=== PATIENT | male | born 1975 ===

== ENCOUNTER 2020-05-26 22:36 | Inpatient (IN) | payer BC ==
[2020-05-26 23:09] VITALS: BMI 30.6
[2020-05-27] MEDS ORDERED: Guaifenesin DM 100-10/5 ML UDCUP PO PRN (00:44)
[2020-05-27] MEDS ORDERED: Acetaminophen 325 MG TAB PO PRN (00:44)
[2020-05-27] MEDS ORDERED: Calcium Carbonate 500 MG ChewTAB PO PRN (00:44)
[2020-05-27] MEDS ORDERED: Acetaminophen 650 MG Suppository PR PRN (00:44)
[2020-05-27] MEDS ORDERED: HYDROcodone/Acetaminophen 5/325 mg Tablet PO PRN ×2 (00:44)
[2020-05-27] MEDS ORDERED: Azithromycin 500 MG in Sodium Chloride 0.9% 250 ML 250 ML IVPB SCH ×2 (00:45→21:00)
--- NOTE | 2020-05-27 00:50 | PDOC.HHP ---
Hospitalist HPI - History of Present Illness dyspnea History of Present Illness: Case of an 44y/o male with pmhx of htn and dmt2 who comes to hospital transfer from another ED due to dyspnea. patient refers he was on his usual state of health until 2 weeks ago when he started with symptoms of losing sense of smell and taste accompanied by weakness, congestion and fever. his girlfriend had recently tested positive for the virus. patient states he went to get tested on the Friday of that week and results came back positive. today patient went to the ED because he was feeling better, and wanted to get retested to see if he could return to work. on the distance between between walking from his car to [facility] patient became dyspnic and his o2 sats were in the 70s. patient was retested and came back negative but a chest ct showed signnificant infiltrates with covid patern for which patient was transfer to this institution for further evaluation and management. Hospitalist ROS - Review of Systems All other systems reviewed; all pertinent +/- noted in HPI/Subj Hospitalist History - Past Surgical History Past Surgical History: reports: no pertinent history - Family History Family History: reports: diabetes mellitus - Social History Smoking Status: Never smoker Alcohol: reports: None Drugs: reports: none Living Situation: With Family - Exam General Appearance: NAD, awake alert Eye: PERRL, anicteric sclera ENT: normocephalic atraumatic, no oropharyngeal lesions Neck: supple, symmetric, no JVD Heart: RRR, no murmur, no gallops Respiratory: no wheezes, no rales, normal chest expansion, rhonchi Gastrointestinal: soft, non-tender, non-distended, normal bowel sounds Extremities: no cyanosis, no clubbing, no edema Neurological: cranial nerve grossly intact, normal sensation to touch, no weakness Musculoskeletal: normal tone, normal strength, no muscle wasting Psychiatric: normal affect, normal behavior, A&O x 3 Hospitalist H&P A/P - Problem (1) Acute respiratory failure with hypoxia Code(s): J96.01 - ACUTE RESPIRATORY FAILURE WITH HYPOXIA Status: Acute (2) Pneumonia due to COVID-19 virus Code(s): U07.1 - COVID-19; J12.89 - OTHER VIRAL PNEUMONIA Status: Acute (3) Uncontrolled diabetes mellitus Code(s): E11.65 - TYPE 2 DIABETES MELLITUS WITH HYPERGLYCEMIA Status: Acute (4) HTN (hypertension) Code(s): I10 - ESSENTIAL (PRIMARY) HYPERTENSION Status: Acute - Plan Plan: 44y/o male with the stated pmhx who present with covid 19 covid 19 pneumonia - tested positive a week ago - cta consistent with covid 19 - will start prophylactic rocephin + azithromycin - dexamethazone 6mg iv x 5 days - f/u inflammation markers, dimer elevated - id consulted - f/u blood cultures respiratray failure acute with hypoxia - o2 supplementation atleast 94% min - likely secondary to above DM - starting long dose insuling - acc + ss htn - contine home meds when available, patient took today - will add labetalol iv prn
[2020-05-27] MEDS ORDERED: cefTRIAXone\\ROCEPHIN 1 GM in Sodium Chloride 0.9% 100 ML IVPB SCH (01:00)
[2020-05-27] MEDS: Sodium Chloride 0.9% 1,000 ML IV SCH ×2 (01:35→21:31)
[2020-05-27] MEDS ORDERED: Dextrose 5% in Water 1,000 ML IV PRN (01:47)
[2020-05-27] MEDS ORDERED: Dextrose 50% Abboject 50 ML SYRINGE SLOW IVP PRN (01:47)
[2020-05-27] MEDS ORDERED: Labetalol HCl 100 MG/20 ML VIAL SLOW IVP PRN (01:50)
[2020-05-27] MEDS ORDERED: Insulin Glargine 10 UNITS in Pre-Filled Syringe 1 EACH SC SCH (02:30)
[2020-05-27] MEDS: HumaLOG 300 UNITS/3 ML VIAL SC PRN ×4 (02:37→21:34)
[2020-05-27 06:03] LABS: Band 1 % (5-11); Hemoglobin 14.7 g/dL (14.0-18.0); Lymphocytes 7 % (21-51); MDiff Complete? YES; Mean Corpuscular HGB CONC 34.8 g/dL (32.0-36.0); Mean Corpuscular Hemoglobin 30.5 pg (27.0-31.0); Mean Corpuscular Volume 87.4 fL (78.0-98.0); Mean Platelet Volume 8.4 fL (7.4-10.4); Monocytes 6 % (0-10); Neutrophil 86 % (42-75); Platelet Count 446 thou/uL (130-400); Platelet Morphology Comment Appears Increased; RBC Distribution Width 11.4 % (11.5-14.5); RBC Morphology Normal; Red Blood Cell (RBC) Count 4.83 mill/uL (4.70-6.10); White Blood Cell (WBC) Count 8.4 thou/uL (4.8-10.8)
[2020-05-27 06:24] LABS: ALT (SGPT) 29 U/L (8-55); AST (SGOT) 19 U/L (5-34); Albumin 2.5 g/dL (3.5-5.0); Alkaline Phosphatase 78 U/L (40-110); Anion Gap 17 mmol/L (10-20); BUN (Urea Nitrogen) 15 mg/dL (8.9-20.6); Bilirubin, Total 0.3 mg/dL (0.2-1.2); CRP (Inflammatory) 17.25 mg/dL (= or < 0.5); Calc. Creatinine Clearance 162 mL/min (70-130); Calcium 8.5 mg/dL (7.8-10.44); Carbon Dioxide 23 mmol/L (22-29); Chloride 98 mmol/L (98-107); Estimated GFR-MDRD Greater than 90; Globulin 4.1 g/dL (2.4-3.5); Glucose 345 mg/dL (70-105); Protein, Total 6.6 g/dL (6.0-8.3); Sodium 134 mmol/L (136-145)
[2020-05-27] MEDS: Dexamethasone 4 mg/ml Vial SLOW IVP SCH (08:03)
[2020-05-27] MEDS: Enoxaparin Sodium 40 MG/0.4 ML SYRINGE SC SCH (08:03)
--- NOTE | 2020-05-27 10:56 | PDOC.BPN ---
- Brief Progress Note Encounter Date: 05/27/20 Encounter Time: 10:54 This is a 44-year-old patient who presented to the hospital with worsening dyspnea. Reportedly he was diagnosed with Covid pneumonia a week ago last Friday. He was doing well at home but here in the last 48 hours he started having progressively worsening symptoms prompting this hospitalization. When he rolled in the emergency room he reportedly was 70s in his O2 saturation. He feels comfortable on O2 by nasal cannula. A review of his lab work shows increased inflammatory markers. We will continue empiric treatment with IV antibiotics. Further recommendations to follow.
[2020-05-27] MEDS: Ascorbic Acid 500 mg Chewable Tablet PO SCH ×2 (12:19→21:32)
[2020-05-27] MEDS: Zinc Sulfate 220 MG CAP PO SCH ×2 (12:19→21:32)
[2020-05-27] MEDS ORDERED: FLU VACC QS2020-21(6MOS UP)/PF 60 MCG/0.5 ML SYRINGE IM ONE (21:00)
[2020-05-27] MEDS: Atorvastatin Calcium 20 MG TAB PO SCH (21:32)
[2020-05-27] MEDS: Insulin Glargine 10 UNITS in Pre-Filled Syringe 1 EACH SC SCH (21:33)
[2020-05-28 00:59] LABS: #Eosinphils 0.1 thou/uL (0.0-0.7); #Monocytes 0.9 thou/uL (0.11-0.59); #Neutrophils 9.2 thou/uL (1.40-6.50); %Basophils 0.1 % (0.0-1.0); %Eosinophils 0.6 % (0.0-10.0); %Lymphocytes 8.6 % (21.0-51.0); %Monocytes 8.2 % (0.0-10.0); %Neutrophils 82.6 % (42.0-75.0); Hemoglobin 13.8 g/dL (14.0-18.0); Mean Corpuscular HGB CONC 32.6 g/dL (32.0-36.0); Mean Corpuscular Hemoglobin 29.2 pg (27.0-31.0); Mean Corpuscular Volume 89.7 fL (78.0-98.0); Mean Platelet Volume 8.9 fL (7.4-10.4); Platelet Count 361 thou/uL (130-400); RBC Distribution Width 11.4 % (11.5-14.5); Red Blood Cell (RBC) Count 4.74 mill/uL (4.70-6.10); White Blood Cell (WBC) Count 11.1 thou/uL (4.8-10.8)
[2020-05-28 01:26] LABS: Anion Gap 16 mmol/L (10-20); BUN (Urea Nitrogen) 17 mg/dL (8.9-20.6); Calc. Creatinine Clearance 160 mL/min (70-130); Calcium 8.2 mg/dL (7.8-10.44); Carbon Dioxide 23 mmol/L (22-29); Chloride 97 mmol/L (98-107); Estimated GFR-MDRD Greater than 90; Glucose 354 mg/dL (70-105); Potassium 3.6 mmol/L (3.5-5.1); Sodium 132 mmol/L (136-145)
[2020-05-28] MEDS: HumaLOG 300 UNITS/3 ML VIAL SC PRN ×4 (04:08→21:50)
[2020-05-28] MEDS: Ascorbic Acid 500 mg Chewable Tablet PO SCH ×3 (05:53→21:35)
[2020-05-28] MEDS: Zinc Sulfate 220 MG CAP PO SCH ×3 (05:53→21:35)
--- NOTE | 2020-05-28 06:56 | CON ---
DATE OF CONSULTATION: 05/27/2020 REASON FOR CONSULTATION: COVID pneumonia. HISTORY OF PRESENT ILLNESS: A 44-year-old with history of hypertension, type 2 diabetes, who became ill on May 15 approximately with respiratory symptoms, basically cough, low-grade fever, some general malaise, so he self-quarantined and he was tested positive for COVID a few days later, and basically stayed at home until yesterday when he thought that he was good to go back to work and decided to go to the [facility] to get a repeat COVID test to see if he was negative since he was interested in going back to work, and by then, he was feeling a bit okay, but there in the [facility], they did a CT angio, which showed no evidence of PE, but diffuse ground-glass opacities, so he was sent for admission, particularly since he was hypoxemic on room air at 78%, so the patient was placed on O2, just 2 L nasal cannula with sats in the 97% range. He is actually feeling pretty good. Denies headaches. No visual symptoms, sore throat, odynophagia, or dysphagia. Still with a little bit of cough and [id number] dyspnea. No abdominal pain. No diarrhea. No genitourinary symptoms. No joint symptoms or neurological issues. PAST MEDICAL HISTORY: Type 2 diabetes, hypertension. SOCIAL HISTORY: He is employed. Does not smoke or drink. . FAMILY HISTORY: Type 2 diabetes. PAST SURGICAL HISTORY: Negative. MEDICATIONS: At the moment, he is receiving; 1. Azithromycin. 2. Rocephin. 3. Decadron. 4. Insulin. 5. Enoxaparin. PHYSICAL EXAMINATION: VITAL SIGNS: T-max 98.7, blood pressure 160/88, heart rate 88, respiratory rate 20, O2 saturation 96% on 2.5 L nasal cannula. SKIN: Normal. There is no lymphadenopathy. HEENT: Ocular movements are conjugate. Oral cavity, normal. NECK: Supple. LUNGS: Symmetric air entry with few crackles here and there. No wheezing. HEART: S1 and S2. Regular rate. ABDOMEN: Soft, not distended or tender. No ascites. No bladder distention. No joint inflammatory activity. NEURO: Nonfocal. No edema. Cognitive function appears to be intact. LABORATORY DATA: From [facility], we have a normal liver profile. Glucose was high at 360, creatinine normal. CRP here was high at 17 and ferritin was 2200. ASSESSMENT AND PLAN: 1. Type 2 diabetes, hypertension. 2. [id number] COVID pneumonia. This is going on to the 13th day of illness almost the end of the second week. He desaturates quite a bit from 94% to 89% without oxygen and from 97% to 91% with oxygen when he does exercise, so he is not eligible for antiviral therapy and should continue on Decadron. Discontinue antimicrobial therapy, otherwise wait for his markers to start trending down and see if his O2 needs stabilize and improve. I think he needs to stick around until we are sure that his illness is going to start to demonstrate decrease in inflammatory process to avoid readmission. Continue enoxaparin. Job ID: [id number] [facility]
[2020-05-28] MEDS: Enoxaparin Sodium 40 MG/0.4 ML SYRINGE SC SCH (08:38)
[2020-05-28] MEDS: Dexamethasone 4 mg/ml Vial SLOW IVP SCH (08:38)
--- NOTE | 2020-05-28 10:32 | PDOC.HOSPP ---
- Subjective Encounter Date: 05/28/20 Encounter Time: 10:31 Subjective: Patient was seen and evaluated today. He remains on O2 via nasal cannula at 2 and half liters. He is saturating anywhere from 94 to 98% but does desaturate a little bit down on activities. He otherwise is feeling well. We will continue current treatment plan. - Objective Vital Signs & Weight: Vital Signs (12 hours) Temp Pulse Resp BP Pulse Ox 05/28/20 03:00 98.6 F 84 22 H 153/83 H 94 L Weight Weight 195 lb 6.4 oz I&O: 05/27/20 05/28/20 05/29/20 07:59 06:59 06:59 Intake Total 1450 Output Total 1100 Balance 350 Result Diagrams: 05/28/20 00:47 05/28/20 00:47 Additional Labs: Accuchecks 05/27/20 05/27/20 18:03 12:07 POC Glucose 338 H 318 H Radiology Reviewed by me: Yes EKG Reviewed by me: Yes Hospitalist ROS - Review of Systems Constitutional: reports: weakness, malaise Respiratory: reports: cough, dry, shortness of breath, SOB with excertion - Medication Medications: Active Medications Generic Name Dose Route Start Last Admin Trade Name Freq PRN Reason Stop Dose Admin Ascorbic Acid 500 mg 05/27/20 14:00 05/28/20 05:53 Ascorbic Acid 500 Mg Chewable Tablet PO 500 mg Q8HR PHOEBE Administration Atorvastatin Calcium 20 mg 05/27/20 21:00 05/27/20 21:32 Atorvastatin Calcium 20 Mg Tab PO 20 mg HS PHOEBE Administration Dexamethasone 6 mg 05/27/20 09:00 05/28/20 08:38 Dexamethasone 4 Mg/Ml Vial SLOW IVP 6 mg DAILY PHOEBE Administration Enoxaparin Sodium 40 mg 05/27/20 09:00 05/28/20 08:38 Enoxaparin Sodium 40 Mg/0.4 Ml Syringe SC 40 mg 0900 PHOEBE Administration Insulin Glargine 10 units/ 0.1 mls @ 0 mls/hr 05/27/20 21:00 05/27/20 21:33 Miscellaneous Medication SC 0.1 mls HS PHOEBE Administration Insulin Human Lispro 0 units 05/27/20 01:47 05/28/20 04:08 Humalog 300 Units/3 Ml Vial SC 6 unit .MILD SLIDING SCALE PRN Administration Mild Correctional Scale Insulin Human Lispro 0 units 05/27/20 02:45 05/27/20 02:37 Humalog 300 Units/3 Ml Vial SC 4 unit .BEDTIME SLIDING SC PRN Administration BEDTIME SLIDING SCALE Protocol Sodium Chloride 10 ml 05/27/20 09:00 05/28/20 08:38 Flush - Normal Saline 10 Ml Syringe IVF Not Given Q12HR PHOEBE Zinc Sulfate 220 mg 05/27/20 14:00 05/28/20 05:53 Zinc Sulfate 220 Mg Cap PO 220 mg Q8HR PHOEBE Administration - Exam General Appearance: awake alert Eye: PERRL ENT: normocephalic atraumatic, moist mucosa Neck: supple, symmetric, no thyromegaly, no lymphadenopathy, no carotid bruit Heart: RRR Respiratory: CTAB, no wheezes, no rales, no ronchi, normal chest expansion Gastrointestinal: soft, non-tender, non-distended, normal bowel sounds, no palpable masses, no hepatomegaly, no splenomegaly Extremities: no cyanosis, no clubbing, no edema Psychiatric: normal affect, normal behavior, A&O x 3, oriented to person, oriented to place, oriented to time Hosp A/P - Plan continue antibiotics, respiratory therapy, incentive spirometry, DVT proph w/lovenox #1. Acute respiratory failure with hypoxia. Secondary to COVID-19 pneumonia. Continue O2 supplementation and wean off as tolerated. 2. COVID-19 pneumonia. Continue empiric IV antibiotics and supportive care.
[2020-05-28] MEDS: Atorvastatin Calcium 20 MG TAB PO SCH (21:35)
[2020-05-28] MEDS: Insulin Glargine 10 UNITS in Pre-Filled Syringe 1 EACH SC SCH (21:36)
[2020-05-29 05:05] LABS: #Basophils 0.1 thou/uL (0.0-0.2); #Eosinphils 0.1 thou/uL (0.0-0.7); #Lymphocytes 1.4 thou/uL (1.20-3.40); #Monocytes 0.8 thou/uL (0.11-0.59); #Neutrophils 6.6 thou/uL (1.40-6.50); %Basophils 0.8 % (0.0-1.0); %Eosinophils 1.5 % (0.0-10.0); %Lymphocytes 15.3 % (21.0-51.0); %Monocytes 9.2 % (0.0-10.0); %Neutrophils 73.2 % (42.0-75.0); Hemoglobin 13.9 g/dL (14.0-18.0); Mean Corpuscular HGB CONC 34.4 g/dL (32.0-36.0); Mean Corpuscular Volume 87.2 fL (78.0-98.0); Mean Platelet Volume 7.6 fL (7.4-10.4); Platelet Count 494 thou/uL (130-400); RBC Distribution Width 11.3 % (11.5-14.5); Red Blood Cell (RBC) Count 4.63 mill/uL (4.70-6.10); White Blood Cell (WBC) Count 9.1 thou/uL (4.8-10.8)
[2020-05-29] MEDS: Zinc Sulfate 220 MG CAP PO SCH ×3 (05:07→22:24)
[2020-05-29] MEDS: Ascorbic Acid 500 mg Chewable Tablet PO SCH ×3 (05:07→22:24)
[2020-05-29] MEDS: HumaLOG 300 UNITS/3 ML VIAL SC PRN ×4 (05:28→22:25)
[2020-05-29 05:29] LABS: Anion Gap 10 mmol/L (10-20); BUN (Urea Nitrogen) 14 mg/dL (8.9-20.6); Calc. Creatinine Clearance 180 mL/min (70-130); Calcium 8.1 mg/dL (7.8-10.44); Carbon Dioxide 25 mmol/L (22-29); Chloride 101 mmol/L (98-107); Estimated GFR-MDRD Greater than 90; Glucose 273 mg/dL (70-105); Potassium 3.4 mmol/L (3.5-5.1); Sodium 133 mmol/L (136-145)
[2020-05-29] MEDS: Enoxaparin Sodium 40 MG/0.4 ML SYRINGE SC SCH (08:33)
[2020-05-29] MEDS: Dexamethasone 4 mg/ml Vial SLOW IVP SCH (08:33)
--- NOTE | 2020-05-29 10:08 | RAD ---
CHEST 1 VIEW: Date: 05/29/2020 HISTORY: Pneumonia. COMPARISON: None. FINDINGS: Bilateral infiltrative lung changes would be highly suggestive of a COVID-type pneumonia. IMPRESSION: Bilateral infiltrates suggesting COVID pneumonia. POS: TERRELL
--- NOTE | 2020-05-29 10:45 | PDOC.HOSPP ---
- Subjective Encounter Date: 05/29/20 Encounter Time: 10:43 Subjective: 44-year-old patient seen and examined. He is being treated for COVID-19 pneumonia. He is on O2 via nasal cannula and seems to be tolerating it so far. Chest x-ray still consistent with Covid pneumonia. We will continue current management plan. We will begin the process of weaning down on O2. - Objective Vital Signs & Weight: Vital Signs (12 hours) Temp Pulse Resp BP Pulse Ox 05/29/20 08:50 98.1 F 83 20 140/88 94 L 05/29/20 07:27 98 05/29/20 05:40 98.0 F 70 20 168/83 H 98 05/29/20 05:19 97 Weight Weight 195 lb 6.4 oz I&O: 05/28/20 05/29/20 05/30/20 06:59 06:59 06:59 Intake Total 3660 Output Total 2600 Balance 1060 Result Diagrams: 05/29/20 04:41 05/29/20 04:41 Additional Labs: Accuchecks 05/29/20 05/28/20 05/28/20 05:19 21:42 16:21 POC Glucose 262 H 316 H 369 H 05/28/20 05/28/20 11:37 04:14 POC Glucose 334 H 304 H Radiology Reviewed by me: Yes EKG Reviewed by me: Yes Hospitalist ROS - Review of Systems Constitutional: reports: weakness, malaise Respiratory: reports: cough, dry Gastrointestinal: reports: nausea - Medication Medications: Active Medications Generic Name Dose Route Start Last Admin Trade Name Freq PRN Reason Stop Dose Admin Ascorbic Acid 500 mg 05/27/20 14:00 05/29/20 05:07 Ascorbic Acid 500 Mg Chewable Tablet PO 500 mg Q8HR PHOEBE Administration Atorvastatin Calcium 20 mg 05/27/20 21:00 05/28/20 21:35 Atorvastatin Calcium 20 Mg Tab PO 20 mg HS PHOEBE Administration Dexamethasone 6 mg 05/27/20 09:00 05/29/20 08:33 Dexamethasone 4 Mg/Ml Vial SLOW IVP 6 mg DAILY PHOEBE Administration Enoxaparin Sodium 40 mg 05/27/20 09:00 05/29/20 08:33 Enoxaparin Sodium 40 Mg/0.4 Ml Syringe SC 40 mg 0900 PHOEBE Administration Insulin Glargine 10 units/ 0.1 mls @ 0 mls/hr 05/27/20 21:00 05/28/20 21:36 Miscellaneous Medication SC 0.1 mls HS PHOEBE Administration Insulin Human Lispro 0 units 05/27/20 01:47 05/29/20 05:28 Humalog 300 Units/3 Ml Vial SC 4 unit .MILD SLIDING SCALE PRN Administration Mild Correctional Scale Insulin Human Lispro 0 units 05/27/20 02:45 05/28/20 21:50 Humalog 300 Units/3 Ml Vial SC 4 unit .BEDTIME SLIDING SC PRN Administration BEDTIME SLIDING SCALE Protocol Sodium Chloride 10 ml 05/27/20 09:00 05/29/20 08:34 Flush - Normal Saline 10 Ml Syringe IVF 10 ml Q12HR PHOEBE Administration Sodium Chloride 10 ml 05/27/20 01:15 05/29/20 08:34 Flush - Normal Saline 10 Ml Syringe IVF 10 ml PRN PRN Administration Saline Flush Zinc Sulfate 220 mg 05/27/20 14:00 05/29/20 05:07 Zinc Sulfate 220 Mg Cap PO 220 mg Q8HR PHOEBE Administration - Exam General Appearance: NAD, awake alert Eye: PERRL ENT: normocephalic atraumatic, no oropharyngeal lesions, moist mucosa Neck: supple, symmetric, no JVD, no lymphadenopathy Heart: RRR, no murmur, no gallops, normal peripheral pulses Respiratory: no wheezes, no tachypnea, rales, rhonchi Gastrointestinal: soft, non-tender, non-distended, normal bowel sounds, no palpable masses Neurological: cranial nerve grossly intact, no weakness, no focal deficits Musculoskeletal: normal tone, normal strength, no muscle wasting Psychiatric: normal affect, normal behavior, A&O x 3, oriented to person, oriented to place, oriented to time Hosp A/P (1) Acute respiratory failure with hypoxia Code(s): J96.01 - ACUTE RESPIRATORY FAILURE WITH HYPOXIA Status: Acute (2) Pneumonia due to COVID-19 virus Code(s): U07.1 - COVID-19; J12.89 - OTHER VIRAL PNEUMONIA Status: Acute - Plan #1. Acute respiratory failure with hypoxia. Secondary to COVID-19 pneumonia. Continue O2 supplementation and wean off as tolerated. 05/29/2020. He remains on O2 via nasal cannula. We will continue this for now and wean as tolerated. 2. COVID-19 pneumonia. Continue empiric IV antibiotics and supportive care. 05/29/2020. Chest x-ray with not much improvement yet. We will continue current management plan. #3. Diabetes. We will check his hemoglobin A1c. Continue Accu-Cheks. Continue sliding scale coverage and long-acting insulin. #4. Hypokalemia. I will replace this.
[2020-05-29] MEDS: Atorvastatin Calcium 20 MG TAB PO SCH (22:24)
[2020-05-29] MEDS: Insulin Glargine 10 UNITS in Pre-Filled Syringe 1 EACH SC SCH (22:25)
[2020-05-30] MEDS: Zinc Sulfate 220 MG CAP PO SCH ×3 (06:14→20:44)
[2020-05-30] MEDS: Ascorbic Acid 500 mg Chewable Tablet PO SCH ×3 (06:14→20:44)
[2020-05-30] MEDS: HumaLOG 300 UNITS/3 ML VIAL SC PRN ×4 (06:55→20:55)
[2020-05-30] MEDS: Enoxaparin Sodium 40 MG/0.4 ML SYRINGE SC SCH (09:02)
[2020-05-30] MEDS: Dexamethasone 4 mg/ml Vial SLOW IVP SCH (09:02)
--- NOTE | 2020-05-30 11:47 | PDOC.HOSPP ---
- Subjective Encounter Date: 05/30/20 Encounter Time: 11:46 Subjective: Patient remains clinically improved today. I have turned him down to O2 at 1 L nasal cannula. His inflammatory marker continues to trend downwards. We will continue current management plan. I am hopeful he will be medically optimized within the next 24 maybe 48 hours. - Objective Vital Signs & Weight: Vital Signs (12 hours) Temp Pulse Resp BP Pulse Ox 05/30/20 11:05 97.2 F L 78 24 H 154/93 H 98 05/30/20 09:05 98.6 F 73 24 H 152/91 H 98 05/30/20 08:31 96 05/30/20 05:56 96 05/30/20 04:00 98.2 F 72 18 159/97 H 96 Weight Weight 195 lb 6.4 oz I&O: 05/29/20 05/30/20 05/31/20 06:59 06:59 06:59 Intake Total 3660 Output Total 2600 1200 Balance 1060 -1200 Result Diagrams: 05/29/20 04:41 05/29/20 04:41 Additional Labs: Accuchecks 05/30/20 05/30/20 05/29/20 11:01 04:58 11:49 POC Glucose 226 H 246 H 352 H Radiology Reviewed by me: Yes EKG Reviewed by me: Yes Hospitalist ROS - Review of Systems Constitutional: reports: chills, weakness, malaise Respiratory: reports: cough, dry, shortness of breath, SOB with excertion - Medication Medications: Active Medications Generic Name Dose Route Start Last Admin Trade Name Freq PRN Reason Stop Dose Admin Ascorbic Acid 500 mg 05/27/20 14:00 05/30/20 06:14 Ascorbic Acid 500 Mg Chewable Tablet PO 500 mg Q8HR PHOEBE Administration Atorvastatin Calcium 20 mg 05/27/20 21:00 05/29/20 22:24 Atorvastatin Calcium 20 Mg Tab PO 20 mg HS PHOEBE Administration Dexamethasone 6 mg 05/27/20 09:00 05/30/20 09:02 Dexamethasone 4 Mg/Ml Vial SLOW IVP 6 mg DAILY PHOEBE Administration Enoxaparin Sodium 40 mg 05/27/20 09:00 05/30/20 09:02 Enoxaparin Sodium 40 Mg/0.4 Ml Syringe SC 40 mg 0900 PHOEBE Administration Insulin Glargine 10 units/ 0.1 mls @ 0 mls/hr 05/27/20 21:00 05/29/20 22:25 Miscellaneous Medication SC 0.1 mls HS PHOEBE Administration Insulin Human Lispro 0 units 05/27/20 01:47 05/30/20 06:55 Humalog 300 Units/3 Ml Vial SC 3 unit .MILD SLIDING SCALE PRN Administration Mild Correctional Scale Insulin Human Lispro 0 units 05/27/20 02:45 05/29/20 22:25 Humalog 300 Units/3 Ml Vial SC 5 unit .BEDTIME SLIDING SC PRN Administration BEDTIME SLIDING SCALE Protocol Sodium Chloride 10 ml 05/27/20 09:00 05/30/20 09:02 Flush - Normal Saline 10 Ml Syringe IVF 10 ml Q12HR PHOEBE Administration Sodium Chloride 10 ml 05/27/20 01:15 05/29/20 08:34 Flush - Normal Saline 10 Ml Syringe IVF 10 ml PRN PRN Administration Saline Flush Zinc Sulfate 220 mg 05/27/20 14:00 05/30/20 06:14 Zinc Sulfate 220 Mg Cap PO 220 mg Q8HR PHOEBE Administration - Exam General Appearance: awake alert Eye: PERRL, anicteric sclera ENT: normocephalic atraumatic, no oropharyngeal lesions, moist mucosa Neck: supple, symmetric, no JVD, no lymphadenopathy, no carotid bruit Heart: RRR, no murmur, no gallops, no rubs, normal peripheral pulses Respiratory: CTAB, no ronchi, normal chest expansion, no tachypnea, normal percussion Gastrointestinal: soft, non-tender, non-distended, normal bowel sounds, no palpable masses Extremities: no cyanosis, no clubbing, no edema Neurological: cranial nerve grossly intact, normal sensation to touch, no weakness, no focal deficits Musculoskeletal: normal tone, normal strength, no muscle wasting Psychiatric: normal affect, normal behavior, A&O x 3 Hosp A/P (1) Acute respiratory failure with hypoxia Code(s): J96.01 - ACUTE RESPIRATORY FAILURE WITH HYPOXIA Status: Acute Plan: I have trended down his O2. Continue supportive care. (2) Pneumonia due to COVID-19 virus Code(s): U07.1 - COVID-19; J12.89 - OTHER VIRAL PNEUMONIA Status: Acute Plan: We will continue empiric antibiotics. Sputum cultures cultures reviewed. - Plan #1. Acute respiratory failure with hypoxia. Secondary to COVID-19 pneumonia. Continue O2 supplementation and wean off as tolerated. 05/29/2020. He remains on O2 via nasal cannula. We will continue this for now and wean as tolerated. 05/30/2020. We will continue to wean him off of oxygen. I turned him down to 1 L today and he was saturating around 96%. 2. COVID-19 pneumonia. Continue empiric IV antibiotics and supportive care. 05/29/2020. Chest x-ray with not much improvement yet. We will continue current management plan. #3. Diabetes. We will check his hemoglobin A1c. Continue Accu-Cheks. Continue sliding scale coverage and long-acting insulin. #4. Hypokalemia. I will replace this.
[2020-05-30] MEDS: Insulin Glargine 10 UNITS in Pre-Filled Syringe 1 EACH SC SCH (20:44)
[2020-05-30] MEDS: Atorvastatin Calcium 20 MG TAB PO SCH (20:44)
[2020-05-31] MEDS ORDERED: AMLODIPINE PO SCH (00:28)
[2020-05-31] MEDS ORDERED: [UNRECOGNIZED DRUG - OTHER] PO SCH (00:28)
[2020-05-31] MEDS ORDERED: ATORVASTATIN PO SCH (00:28)
[2020-05-31] MEDS ORDERED: Metoprolol Tartrate 25 MG TAB PO SCH (00:45)
[2020-05-31] MEDS ORDERED: Atorvastatin Calcium 40 MG TAB PO SCH (00:45)
[2020-05-31] MEDS ORDERED: Amlodipine 10 MG TAB PO SCH (00:45)
[2020-05-31] MEDS: Zinc Sulfate 220 MG CAP PO SCH ×3 (05:36→21:16)
[2020-05-31] MEDS: Ascorbic Acid 500 mg Chewable Tablet PO SCH ×3 (05:36→21:16)
[2020-05-31] MEDS: HumaLOG 300 UNITS/3 ML VIAL SC PRN ×4 (05:40→21:30)
[2020-05-31 05:53] LABS: #Eosinphils 0.2 thou/uL (0.0-0.7); #Lymphocytes 1.7 thou/uL (1.20-3.40); #Monocytes 0.7 thou/uL (0.11-0.59); #Neutrophils 7.5 thou/uL (1.40-6.50); %Basophils 0.2 % (0.0-1.0); %Eosinophils 1.6 % (0.0-10.0); %Lymphocytes 16.9 % (21.0-51.0); %Monocytes 7.2 % (0.0-10.0); %Neutrophils 74.2 % (42.0-75.0); Hemoglobin 13.5 g/dL (14.0-18.0); Mean Corpuscular HGB CONC 34.2 g/dL (32.0-36.0); Mean Corpuscular Hemoglobin 30.2 pg (27.0-31.0); Mean Corpuscular Volume 88.4 fL (78.0-98.0); Mean Platelet Volume 7.9 fL (7.4-10.4); Platelet Count 452 thou/uL (130-400); RBC Distribution Width 11.3 % (11.5-14.5); Red Blood Cell (RBC) Count 4.46 mill/uL (4.70-6.10); White Blood Cell (WBC) Count 10.2 thou/uL (4.8-10.8)
[2020-05-31 05:56] LABS: Hemoglobin A1c 12.9 % (4.0-6.0)
[2020-05-31] MEDS: Amlodipine 10 MG TAB PO SCH (09:04)
[2020-05-31] MEDS: Enoxaparin Sodium 40 MG/0.4 ML SYRINGE SC SCH (09:05)
[2020-05-31] MEDS: Atorvastatin Calcium 40 MG TAB PO SCH (09:05)
[2020-05-31] MEDS: Metoprolol Tartrate 25 MG TAB PO SCH ×2 (09:05→21:15)
[2020-05-31] MEDS: Dexamethasone 4 mg/ml Vial SLOW IVP SCH (09:05)
--- NOTE | 2020-05-31 15:36 | PDOC.HOSPP ---
- Subjective Encounter Date: 05/31/20 Encounter Time: 15:34 Subjective: Patient reports that he is doing well. I went ahead and turn his oxygen off. This is in anticipation of possible discharge here within the next 48 hours. He is continue to tolerate his antibiotic and supportive care. - Objective Vital Signs & Weight: Vital Signs (12 hours) Temp Pulse Resp BP Pulse Ox 05/31/20 12:35 97.5 F L 87 20 144/86 H 98 05/31/20 12:00 98 05/31/20 09:04 70 05/31/20 09:00 97.3 F L 78 20 162/95 H 92 L Weight Weight 195 lb 6.4 oz I&O: 05/30/20 05/31/20 06/01/20 06:59 06:59 06:59 Output Total 4989 705 6910 Balance -1200 -400 -1450 Result Diagrams: 05/31/20 04:29 05/29/20 04:41 Additional Labs: Accuchecks 05/31/20 05/31/20 05/30/20 10:36 05:40 20:53 POC Glucose 323 H 266 H 405 H 05/30/20 16:49 POC Glucose 398 H Radiology Reviewed by me: Yes EKG Reviewed by me: Yes Hospitalist ROS - Review of Systems Constitutional: reports: weakness Respiratory: reports: cough, dry, shortness of breath, SOB with excertion Neurological: reports: weakness - Medication Medications: Active Medications Generic Name Dose Route Start Last Admin Trade Name Freq PRN Reason Stop Dose Admin Amlodipine Besylate 10 mg 05/31/20 09:00 05/31/20 09:04 Amlodipine 10 Mg Tab PO 10 mg DAILY PHOEBE Administration Ascorbic Acid 500 mg 05/27/20 14:00 05/31/20 12:27 Ascorbic Acid 500 Mg Chewable Tablet PO 500 mg Q8HR PHOEBE Administration Atorvastatin Calcium 40 mg 05/31/20 09:00 05/31/20 09:05 Atorvastatin Calcium 40 Mg Tab PO 40 mg DAILY PHOEBE Administration Dexamethasone 6 mg 05/27/20 09:00 05/31/20 09:05 Dexamethasone 4 Mg/Ml Vial SLOW IVP 6 mg DAILY PHOEBE Administration Enoxaparin Sodium 40 mg 05/27/20 09:00 05/31/20 09:05 Enoxaparin Sodium 40 Mg/0.4 Ml Syringe SC 40 mg 0900 PHOEBE Administration Insulin Glargine 10 units/ 0.1 mls @ 0 mls/hr 05/27/20 21:00 05/30/20 20:44 Miscellaneous Medication SC 0.1 mls HS PHOEBE Administration Insulin Human Lispro 0 units 05/27/20 01:47 05/31/20 12:27 Humalog 300 Units/3 Ml Vial SC 5 unit .MILD SLIDING SCALE PRN Administration Mild Correctional Scale Insulin Human Lispro 0 units 05/27/20 02:45 05/30/20 20:55 Humalog 300 Units/3 Ml Vial SC 5 unit .BEDTIME SLIDING SC PRN Administration BEDTIME SLIDING SCALE Protocol Metoprolol Tartrate 25 mg 05/31/20 09:00 05/31/20 09:05 Metoprolol Tartrate 25 Mg Tab PO 25 mg BID PHOEBE Administration Sodium Chloride 10 ml 05/27/20 09:00 05/31/20 09:09 Flush - Normal Saline 10 Ml Syringe IVF 10 ml Q12HR PHOEBE Administration Sodium Chloride 10 ml 05/27/20 01:15 05/29/20 08:34 Flush - Normal Saline 10 Ml Syringe IVF 10 ml PRN PRN Administration Saline Flush Zinc Sulfate 220 mg 05/27/20 14:00 05/31/20 12:26 Zinc Sulfate 220 Mg Cap PO 220 mg Q8HR PHOEBE Administration - Exam General Appearance: awake alert, ill appearing Eye: PERRL ENT: normocephalic atraumatic, no oropharyngeal lesions Neck: supple, symmetric, no thyromegaly, no lymphadenopathy Heart: RRR, no murmur, no gallops, normal peripheral pulses Respiratory: CTAB, no wheezes, no rales, no ronchi, normal chest expansion Gastrointestinal: soft, non-tender, non-distended, normal bowel sounds, no palpable masses Extremities: no cyanosis Skin: normal turgor, no lesions, no rashes Neurological: cranial nerve grossly intact, no weakness, no focal deficits Musculoskeletal: generalized weakness Psychiatric: normal affect, normal behavior, A&O x 3, oriented to person Hosp A/P (1) Acute respiratory failure with hypoxia Code(s): J96.01 - ACUTE RESPIRATORY FAILURE WITH HYPOXIA Status: Acute (2) Pneumonia due to COVID-19 virus Code(s): U07.1 - COVID-19; J12.89 - OTHER VIRAL PNEUMONIA Status: Acute - Plan #1. Acute respiratory failure with hypoxia. Secondary to COVID-19 pneumonia. Continue O2 supplementation and wean off as tolerated. 05/29/2020. He remains on O2 via nasal cannula. We will continue this for now and wean as tolerated. 05/30/2020. We will continue to wean him off of oxygen. I turned him down to 1 L today and he was saturating around 96%. 2. COVID-19 pneumonia. Continue empiric IV antibiotics and supportive care. 05/29/2020. Chest x-ray with not much improvement yet. We will continue current management plan. #3. Diabetes. We will check his hemoglobin A1c. Continue Accu-Cheks. Continue sliding scale coverage and long-acting insulin. 05/31/2020. I will resume his Metformin. 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 #4. Hypokalemia. I will replace this.
[2020-05-31] MEDS: metFORMIN 500 MG TAB PO SCH (16:53)
[2020-05-31] MEDS: Icosapent Ethyl 1 GM CAPSULE PO SCH (16:57)
[2020-05-31] MEDS ORDERED: Non-Formulary Item 1 EACH (Icosapent Ethyl 1 GM Capsule) PO SCH (17:00)
[2020-05-31] MEDS: Insulin Glargine 10 UNITS in Pre-Filled Syringe 1 EACH SC SCH (21:15)
[2020-06-01] MEDS: Zinc Sulfate 220 MG CAP PO SCH ×3 (05:36→20:53)
[2020-06-01] MEDS: Ascorbic Acid 500 mg Chewable Tablet PO SCH ×3 (05:36→20:53)
[2020-06-01] MEDS: HumaLOG 300 UNITS/3 ML VIAL SC PRN ×4 (05:45→21:14)
[2020-06-01] MEDS: Icosapent Ethyl 1 GM CAPSULE PO SCH ×2 (08:13→17:28)
[2020-06-01] MEDS: Dexamethasone 4 mg/ml Vial SLOW IVP SCH (08:13)
[2020-06-01] MEDS: Metoprolol Tartrate 25 MG TAB PO SCH ×2 (08:13→20:54)
[2020-06-01] MEDS: metFORMIN 500 MG TAB PO SCH (08:13)
[2020-06-01] MEDS: Amlodipine 10 MG TAB PO SCH (08:14)
[2020-06-01] MEDS: Atorvastatin Calcium 40 MG TAB PO SCH (08:14)
[2020-06-01] MEDS: Enoxaparin Sodium 40 MG/0.4 ML SYRINGE SC SCH (08:14)
--- NOTE | 2020-06-01 13:40 | PDOC.HOSPP ---
- Subjective Encounter Date: 06/01/20 Encounter Time: 13:38 Subjective: Surprisingly his sputum culture came out with Pseudomonas. I have started him on IV ciprofloxacin. He has been weaned off of oxygen and his saturation is staying above 94%. This is a 44-year-old being treated for COVID-19 pneumonia. Likely complicated by Pseudomonas. He is a poorly controlled diabetic and we will treat this aggressively. - Objective Vital Signs & Weight: Vital Signs (12 hours) Temp Pulse Resp BP BP BP Pulse Ox 06/01/20 11:21 98.3 F 88 18 130/77 95 06/01/20 08:14 98.8 F 85 16 148/88 H 148/88 H 94 L 06/01/20 05:24 95 06/01/20 03:35 98.6 F 70 20 136/76 95 Weight Weight 207 lb 1.6 oz I&O: 05/31/20 06/01/20 06/02/20 06:59 06:59 06:59 Intake Total 4620 590 Output Total 400 4050 Balance -400 570 590 Result Diagrams: 05/31/20 04:29 05/29/20 04:41 Additional Labs: Accuchecks 06/01/20 06/01/20 05/31/20 11:07 05:41 21:21 POC Glucose 358 H 300 H 355 H 05/31/20 17:05 POC Glucose 494 H Radiology Reviewed by me: Yes EKG Reviewed by me: Yes Hospitalist ROS - Review of Systems Constitutional: reports: fever, chills, weakness Respiratory: reports: cough, dry, shortness of breath, SOB with excertion - Medication Medications: Active Medications Generic Name Dose Route Start Last Admin Trade Name Freq PRN Reason Stop Dose Admin Amlodipine Besylate 10 mg 05/31/20 09:00 06/01/20 08:14 Amlodipine 10 Mg Tab PO 10 mg DAILY PHOEBE Administration Ascorbic Acid 500 mg 05/27/20 14:00 06/01/20 05:36 Ascorbic Acid 500 Mg Chewable Tablet PO 500 mg Q8HR PHOEBE Administration Atorvastatin Calcium 40 mg 05/31/20 09:00 06/01/20 08:14 Atorvastatin Calcium 40 Mg Tab PO 40 mg DAILY PHOEBE Administration Dexamethasone 6 mg 05/27/20 09:00 06/01/20 08:13 Dexamethasone 4 Mg/Ml Vial SLOW IVP 6 mg DAILY PHOEBE Administration Enoxaparin Sodium 40 mg 05/27/20 09:00 06/01/20 08:14 Enoxaparin Sodium 40 Mg/0.4 Ml Syringe SC 40 mg 0900 PHOEBE Administration Insulin Glargine 10 units/ 0.1 mls @ 0 mls/hr 05/27/20 21:00 05/31/20 21:15 Miscellaneous Medication SC 0.1 mls HS PHOEBE Administration Ciprofloxacin/Dextrose 400 mg/ 200 mls @ 200 mls/hr 06/01/20 10:30 06/01/20 11:20 Device IVPB 06/01/20 14:00 200 mls NOW PHOEBE Administration Insulin Human Lispro 0 units 05/27/20 01:47 06/01/20 11:21 Humalog 300 Units/3 Ml Vial SC 6 unit .MILD SLIDING SCALE PRN Administration Mild Correctional Scale Insulin Human Lispro 0 units 05/27/20 02:45 05/30/20 20:55 Humalog 300 Units/3 Ml Vial SC 5 unit .BEDTIME SLIDING SC PRN Administration BEDTIME SLIDING SCALE Protocol Metformin HCl 1,000 mg 05/31/20 17:00 06/01/20 08:13 Metformin 500 Mg Tab PO 1,000 mg BID-WM PHOEBE Administration Metoprolol Tartrate 25 mg 05/31/20 09:00 06/01/20 08:13 Metoprolol Tartrate 25 Mg Tab PO 25 mg BID PHOEBE Administration Miscellaneous Medication 1 gm 05/31/20 17:00 06/01/20 08:13 Icosapent Ethyl 1 Gm Capsule PO 1 gm BID-WM PHOEBE Administration Sodium Chloride 10 ml 05/27/20 09:00 06/01/20 08:15 Flush - Normal Saline 10 Ml Syringe IVF 10 ml Q12HR PHOEBE Administration Sodium Chloride 10 ml 05/27/20 01:15 05/29/20 08:34 Flush - Normal Saline 10 Ml Syringe IVF 10 ml PRN PRN Administration Saline Flush Zinc Sulfate 220 mg 05/27/20 14:00 06/01/20 05:36 Zinc Sulfate 220 Mg Cap PO 220 mg Q8HR PHOEBE Administration - Exam General Appearance: awake alert, ill appearing Eye: PERRL ENT: normocephalic atraumatic, no oropharyngeal lesions Neck: supple, symmetric, no JVD, no lymphadenopathy Heart: RRR, no murmur, normal peripheral pulses Respiratory: CTAB, no wheezes, no rales, no ronchi, normal chest expansion Gastrointestinal: soft, non-tender, non-distended, normal bowel sounds, no palpable masses, no splenomegaly Extremities: no cyanosis, no clubbing, no edema Skin: normal turgor, no lesions Neurological: cranial nerve grossly intact, normal sensation to touch, no weakne ss, no focal deficits Musculoskeletal: normal tone Psychiatric: normal affect, normal behavior, A&O x 3 Hosp A/P (1) Acute respiratory failure with hypoxia Code(s): J96.01 - ACUTE RESPIRATORY FAILURE WITH HYPOXIA Status: Acute (2) Pneumonia due to COVID-19 virus Code(s): U07.1 - COVID-19; J12.89 - OTHER VIRAL PNEUMONIA Status: Acute (3) Pseudomonas pneumonia Code(s): J15.1 - PNEUMONIA DUE TO PSEUDOMONAS Status: Acute Qualifiers: Laterality: bilateral Lung location: lower lobe of lung Qualified Code(s): J15.1 - Pneumonia due to Pseudomonas Plan: Sputum culture grew out Pseudomonas. This is complicating the COVID-19 pneumonia. I have added ciprofloxacin intravenous. - Plan continue antibiotics, respiratory therapy, incentive spirometry, out of bed/ambulate #1. Acute respiratory failure with hypoxia. Secondary to COVID-19 pneumonia. Continue O2 supplementation and wean off as tolerated. 05/29/2020. He remains on O2 via nasal cannula. We will continue this for now and wean as tolerated. 05/30/2020. We will continue to wean him off of oxygen. I turned him down to 1 L today and he was saturating around 96%. 2. COVID-19 pneumonia. Continue empiric IV antibiotics and supportive care. 05/29/2020. Chest x-ray with not much improvement yet. We will continue current management plan. #3. Diabetes. We will check his hemoglobin A1c. Continue Accu-Cheks. Continue sliding scale coverage and long-acting insulin. 05/31/2020. I will resume his Metformin. He is on [place] [employer] and will not be a candidate for insulin. His hemoglobin A1c was 12. #4. Hypokalemia. I will replace this #5. Pseudomonas pneumonia. His sputum culture grew out Pseudomonas. I have placed him on appropriate IV antibiotics.
[2020-06-01] MEDS ORDERED: Dextrose 50% Abboject 50 ML SYRINGE SLOW IVP PRN (13:45)
[2020-06-01] MEDS ORDERED: Dextrose 5% in Water 1,000 ML IV PRN (13:45)
[2020-06-01] MEDS: glipiZIDE 5 MG TAB PO SCH (15:23)
[2020-06-01] MEDS: Insulin Glargine 10 UNITS in Pre-Filled Syringe 1 EACH SC SCH (20:54)
[2020-06-02] MEDS: Ascorbic Acid 500 mg Chewable Tablet PO SCH ×2 (04:56→16:03)
[2020-06-02] MEDS: Zinc Sulfate 220 MG CAP PO SCH ×2 (04:56→16:03)
[2020-06-02 05:48] LABS: #Basophils 0.1 thou/uL (0.0-0.2); #Eosinphils 0.1 thou/uL (0.0-0.7); #Lymphocytes 2.2 thou/uL (1.20-3.40); #Monocytes 0.7 thou/uL (0.11-0.59); %Basophils 0.6 % (0.0-1.0); %Eosinophils 0.5 % (0.0-10.0); %Lymphocytes 16.7 % (21.0-51.0); %Monocytes 5.6 % (0.0-10.0); %Neutrophils 76.6 % (42.0-75.0); Hemoglobin 13.7 g/dL (14.0-18.0); Mean Corpuscular HGB CONC 34.8 g/dL (32.0-36.0); Mean Corpuscular Hemoglobin 30.4 pg (27.0-31.0); Mean Corpuscular Volume 87.3 fL (78.0-98.0); Mean Platelet Volume 7.9 fL (7.4-10.4); Platelet Count 439 thou/uL (130-400); RBC Distribution Width 11.7 % (11.5-14.5); White Blood Cell (WBC) Count 13.1 thou/uL (4.8-10.8)
[2020-06-02] MEDS: HumaLOG 300 UNITS/3 ML VIAL SC PRN ×2 (05:54→12:30)
[2020-06-02 06:10] LABS: Anion Gap 11 mmol/L (10-20); BUN (Urea Nitrogen) 13 mg/dL (8.9-20.6); CRP (Inflammatory) 0.82 mg/dL (= or < 0.5); Calc. Creatinine Clearance 191 mL/min (70-130); Calcium 8.3 mg/dL (7.8-10.44); Carbon Dioxide 26 mmol/L (22-29); Chloride 100 mmol/L (98-107); Estimated GFR-MDRD Greater than 90; Glucose 265 mg/dL (70-105); Potassium 3.3 mmol/L (3.5-5.1); Sodium 134 mmol/L (136-145)
[2020-06-02] MEDS ORDERED: predniSONE 20 MG TAB PO SCH (08:00)
[2020-06-02] MEDS: Amlodipine 10 MG TAB PO SCH (09:10)
[2020-06-02] MEDS: Icosapent Ethyl 1 GM CAPSULE PO SCH ×2 (09:10→17:13)
[2020-06-02] MEDS: Enoxaparin Sodium 40 MG/0.4 ML SYRINGE SC SCH (09:11)
[2020-06-02] MEDS: Atorvastatin Calcium 40 MG TAB PO SCH (09:11)
[2020-06-02] MEDS: glipiZIDE 5 MG TAB PO SCH ×2 (09:11→16:03)
[2020-06-02] MEDS: Metoprolol Tartrate 25 MG TAB PO SCH (09:11)
[2020-06-02 13:11] VITALS: BP 154/92; TEMP 98.4
--- NOTE | 2020-06-02 15:31 | PDOC.DS.DS ---
Provider - Provider Date of Admission: 05/26/20 22:36 Date of Discharge: 06/02/20 Admitting Provider: Marito Fontana Consultations: Pulmonary Course - Hospital Course Hospital Course: This is a 44-year-old patient who presented to the hospital with shortness of breath. He reportedly tested positive to the COVID-19 virus. He was on his way to have a retest so he can return to work but just before he got into the urgent care center he reportedly became very profoundly short of breath and they promptly sent him to the hospital. He had evidence of pneumonia on arrival here. He was placed on aggressive treatment. He received IV antibiotics, vitamin C and zinc sulfate. Cultures were collected in his sputum grew out Pseudomonas. This was sensitive to ciprofloxacin which he was treated with. He required oxygen briefly but this has since been discontinued and he is on room air. He will discharge home today and he will follow-up with his PCP on outpatient basis. Resuscitation Status: 05/27/20 00:44 Resuscitation Status Routine Resuscitation Status: FULL: Full Resuscitation - Labs Lab Results: 06/02/20 05:18 06/02/20 05:18 Abnormal Lab Results - Last 48 hrs 06/01/20 04:39: C-Reactive Protein 1.08 H 06/01/20 04:39: D-Dimer 0.81 H 06/01/20 04:39: Ferritin 639.47 H 06/02/20 05:18: Sodium 134 L, Potassium 3.3 L, Creatinine 0.65 L, C-Reactive Protein 0.82 H 06/02/20 05:18: D-Dimer 0.80 H 06/02/20 05:18: Ferritin 608.38 H 06/02/20 05:18: WBC 13.1 H, RBC 4.50 L, Hgb 13.7 L, Hct 39.3 L, Plt Count 439 H, Neutrophils % 76.6 H, Lymphocytes % 16.7 L, Neutrophils # 10.0 H, Monocytes # 0.7 H Microbiology - Entire Visit 05/27/20 01:12 Venous blood - Left Arm Blood Culture - Final NO GROWTH IN 5 DAYS 05/27/20 01:12 Venous blood - Right Hand Blood Culture - Final NO GROWTH IN 5 DAYS 05/29/20 22:42 Sputum Respiratory Culture - Final Pseudomonas aeruginosa - Physical Exam Vitals: Vital Signs (12 hours) Temp Pulse Resp BP BP Pulse Ox 06/02/20 12:08 98.4 F 77 20 154/92 H 98 06/02/20 09:19 98.6 F 80 20 165/94 H 97 06/02/20 05:17 93 L 06/02/20 05:00 98.1 F 67 16 131/75 97 Weight Weight 208 lb 3.2 oz Physical Exam: The patient was seen and examined on the day of discharge. Problem - Discharge Plan Assessment: Patient is clinically stable for discharge home today. - Problem (1) Acute respiratory failure with hypoxia Code(s): J96.01 - ACUTE RESPIRATORY FAILURE WITH HYPOXIA Status: Acute (2) Pneumonia due to COVID-19 virus Code(s): U07.1 - COVID-19; J12.89 - OTHER VIRAL PNEUMONIA Status: Acute (3) Pseudomonas pneumonia Code(s): J15.1 - PNEUMONIA DUE TO PSEUDOMONAS Status: Acute Qualifiers: Laterality: bilateral Lung location: lower lobe of lung Qualified Code(s): J15.1 - Pneumonia due to Pseudomonas Plan - Discharge Medications Prescriptions: Ascorbic Acid [Vitamin C] 500 mg PO Q8HR #30 tab Zinc Sulfate 220 mg PO Q8HR #30 cap Ciprofloxacin HCl [Cipro] 500 mg PO BID #20 tablet glipiZIDE [Glucotrol] 5 mg PO BID-AC #60 tab predniSONE 20 mg PO QAM-WM #5 tab Benzonatate [Tessalon] 100 mg PO TID PRN #30 cap PRN Reason: Cough Home Medications: Medication Instructions Recorded Confirmed Type Icosapent Ethyl [Vascepa] 1 gm PO BID-WM 05/26/20 05/26/20 History Metoprolol Tartrate [Lopressor] 25 mg PO BID 05/27/20 05/27/20 History amLODIPine/Atorvastatin 1 tablet PO DAILY 05/27/20 05/27/20 History [Amlodipine-Atorvast 10-40 mg] Amlodipine [Norvasc] 10 mg PO DAILY tab 06/02/20 Rx Ascorbic Acid [Vitamin C] 500 mg PO Q8HR #30 tab 06/02/20 Rx Atorvastatin Calcium [Lipitor] 40 mg PO DAILY tab 06/02/20 Rx Benzonatate [Tessalon] 100 mg PO TID PRN #30 cap 06/02/20 Rx Ciprofloxacin HCl [Cipro] 500 mg PO BID #20 tablet 06/02/20 Rx HYDROcodone Bit/APAP 5/325 [Vilonia] 1 tab PO Q4H PRN tab 06/02/20 Rx Zinc Sulfate 220 mg PO Q8HR #30 cap 06/02/20 Rx glipiZIDE [Glucotrol] 5 mg PO BID-AC #60 tab 06/02/20 Rx predniSONE 20 mg PO QAM-WM #5 tab 06/02/20 Rx Allergies: No Known Allergies Allergy (Unverified 05/26/20 22:54) - Discharge Instructions Activity:: Activity as Tolerated, Activity Restrictions Therapies:: Not Applicable Equipment/Supplies:: Not Applicable - Follow up Plan Disposition: HOME Quality - Care Measures CORE MEASURES:: N/A
== END 2020-06-02 17:55 | disposition home or self-care (01) | DRG 177 ==
LOC: 2NO 22:36 → 2SW 22:48
PROVIDERS: ADMIT Internal Medicine; ATTEND Hospitalist
PROC: 8E0ZXY6 Isolation (ICD-10-PCS; principal; 2020-05-26)
DX: U07.1 COVID-19 (principal); J12.89 Other viral pneumonia; J96.01 Acute respiratory failure with hypoxia; J15.1 Pneumonia due to Pseudomonas; E11.65 Type 2 diabetes mellitus with hyperglycemia; E87.6 Hypokalemia; I10 Essential (primary) hypertension; Z79.84 Long term (current) use of oral hypoglycemic drugs; Z79.899 Other long term (current) drug therapy
CPT/HCPCS: 36415; 36416; 71045; 80048; 80053; 82728; 83036; 83615; 84145; 85007; 85025; 85027; 85379; 86140; 87040; 87070; 87077; 87186; 87205; J0696; J0744; J1100; J1650; J1815; J3490; J7512